=== PATIENT | male | born 1995 | race Caucasian/White ===

== ENCOUNTER 2017-08-02 13:32 | Inpatient (IN) | payer OTHER ==
[~2017-08-02] VITALS: Ht 177.8 cm; Wt 112.0 kg
[2017-08-02] MEDS ORDERED: LACTATED RINGERS 1,000 ML IV SCH (14:10)
[2017-08-02] MEDS ORDERED: tylenol with codeine PO (14:13)
[2017-08-02 14:17] VITALS: BP 148/86
[2017-08-02] MEDS ORDERED: MIDAZOLAM 1 MG/ML, 2ML ONE (17:27)
[2017-08-02] MEDS ORDERED: FENTANYL PF 250 MCG/5ML ONE (17:27)
[2017-08-02] MEDS ORDERED: PROPOFOL 10 MG/ML, 20ML ONE (17:29)
[2017-08-02] MEDS ORDERED: ROCURONIUM 10MG/ML,5ML ONE (17:30)
[2017-08-02] MEDS ORDERED: OXYMETAZOLINE NASAL SPRAY 0.05%, 15ML ONE ×3 (18:14→18:17)
[2017-08-02] MEDS ORDERED: BALANCED SALT OPHTH IRRIG SOLN 18ML ONE (18:17)
[2017-08-02] MEDS ORDERED: LIDOCAINE/PF 1%, 30ML ONE (18:17)
[2017-08-02] MEDS ORDERED: EPINEPHRINE 1 MG/ML, 1ML ONE (18:17)
[2017-08-02] MEDS ORDERED: ONDANSETRON 2MG/ML, 2ML ONE (18:22)
[2017-08-02] MEDS ORDERED: GLYCOPYRROLATE 0.2MG/1ML, 5ML ONE (18:22)
[2017-08-02] MEDS ORDERED: DEXAMETHASONE 4 MG/ML, 1ML ONE (18:22)
[2017-08-02] MEDS ORDERED: LIDOCAINE 1%-EPI 1:100K, 30ML IM ONE (18:41)
[2017-08-02] MEDS ORDERED: SUGAMMADEX 200 MG/2 ML IVPush ONE (20:00)
[2017-08-02] MEDS ORDERED: MEPERIDINE/PF 50 MG/ML ONE (20:09)
[2017-08-02] MEDS ORDERED: FENTANYL PF 100 MCG/2ML ONE (20:35)
[2017-08-02] MEDS ORDERED: OXYcodone 5 MG/5 ML ORAL.SOL UDC ONE (20:35)
[2017-08-02] MEDS: FENTANYL PF 100 MCG/2ML IV PRN ×2 (20:35→20:52)
[2017-08-02] MEDS ORDERED: hydrALAzine 20 MG/ML, 1ML IV PRN (21:00)
[2017-08-02] MEDS ORDERED: HYDROmorphone 1 MG/ML, 1ML IV PRN (21:00)
[2017-08-02] MEDS ORDERED: ACETAMINOPHEN 325 MG TABLET PO PRN (21:00)
[2017-08-02] MEDS ORDERED: LABETALOL 5MG/ML, 20ML IV PRN (21:00)
[2017-08-02] MEDS ORDERED: OXYcodone 5 MG/5 ML ORAL.SOL UDC PO PRN (21:00)
[2017-08-02] MEDS ORDERED: LORazepam 2 MG/ML, 1ML IVPush PRN (21:00)
[2017-08-02] MEDS ORDERED: PROMETHAZINE 25 MG/ML, 1ML IV PRN (21:00)
[2017-08-02] MEDS ORDERED: MORPHINE SULFATE 4 MG/ML, 1ML ONE (21:53)
[2017-08-02] MEDS: morphine SULFATE 10 MG/ML, 1ML IVPush PRN ×2 (21:58→22:23)
[2017-08-02] MEDS: LACTATED RINGERS 1,000 ML IV SCH (22:00)
[2017-08-02] MEDS: AMPICILLIN/SULBACTAM 3 GM in SODIUM CHLORIDE 0.9% 100 ML IV SCH (22:15)
[2017-08-02 23:58] VITALS: BP 126/81
[2017-08-03] MEDS: morphine SULFATE 10 MG/ML, 1ML IVPush PRN ×4 (03:10→23:52)
[2017-08-03 04:18] VITALS: BP 108/73
[2017-08-03] MEDS: AMPICILLIN/SULBACTAM 3 GM in SODIUM CHLORIDE 0.9% 100 ML IV SCH ×3 (06:29→18:19)
[2017-08-03 08:22] VITALS: BP 136/70
[2017-08-03] MEDS: LACTATED RINGERS 1,000 ML IV SCH (11:37)
[2017-08-03] MEDS: DOCUSATE 100 MG CAPSULE PO SCH ×2 (13:05→23:52)
[2017-08-03 14:09] VITALS: BP 131/72
[2017-08-03 18:51] VITALS: BP 131/70
[2017-08-03] MEDS ORDERED: ONDANSETRON 4 MG TABLET PO PRN (20:30)
[2017-08-03] MEDS ORDERED: ONDANSETRON 2MG/ML, 2ML IVPush PRN (20:30)
[2017-08-04] MEDS: AMPICILLIN/SULBACTAM 3 GM in SODIUM CHLORIDE 0.9% 100 ML IV SCH ×5 (00:02→23:41)
[2017-08-04 02:05] VITALS: BP 123/73
[2017-08-04] MEDS: LACTATED RINGERS 1,000 ML IV SCH ×2 (02:12→15:52)
[2017-08-04 07:09] VITALS: BP 116/69
[2017-08-04] MEDS: DOCUSATE 100 MG CAPSULE PO SCH ×3 (08:22→20:26)
[2017-08-04] MEDS ORDERED: BISACODYL 10 MG SUPP PR PRN (11:00)
[2017-08-04 11:34] LABS: BASOPHILS # (AUTO) 0.18 x10^3/uL (0-0.1); BASOPHILS % (AUTO) 2 % (0-1); EOSINOPHILS # (AUTO) 0.11 x10^3/uL (0-0.4); EOSINOPHILS % (AUTO) 1 % (1-7); LYMPHOCYTES # (AUTO) 1.95 x10^3/uL (1-3.4); LYMPHOCYTES % (AUTO) 17 % (22-44); MD NO; MEAN CORPUSCULAR HEMOGLOBIN 30.3 pg (27.5-34.5); MEAN CORPUSCULAR HGB CONC 34.1 g/dL (33.2-36.2); MEAN CORPUSCULAR VOLUME 88.9 fL (81-97); MEAN PLATELET VOLUME 8.1 fL (7.4-10.4); MONOCYTES % (AUTO) 11 % (2-9); NEUTROPHILS # (AUTO) 8.15 x10^3/uL (1.8-6.8); NEUTROPHILS % (AUTO) 70 % (42-75); PLATELET COUNT 322 x10^3/uL (130-400); RED BLOOD COUNT 4.64 x10^6/uL (4.38-5.82); RED CELL DISTRIBUTION WIDTH 12.7 % (9.4-14.8)
[2017-08-04 11:53] LABS: ALBUMIN 3.2 g/dL (3.4-5.0); ANION GAP 4 mmol/L (5-15); CALCIUM 8.7 mg/dL (8.5-10.1); CHLORIDE 105 mmol/L (98-107)
[2017-08-04 11:56] LABS: ALANINE AMINOTRANSFERASE 25 U/L (12-78); ALKALINE PHOSPHATASE 97 U/L (45-117); BILIRUBIN,TOTAL 0.9 mg/dL (0.2-1.0); CREATININE 0.82 mg/dL (0.7-1.3); TOTAL PROTEIN 7.2 g/dL (6.4-8.2)
[2017-08-04] MEDS: POLYETHYLENE GLYCOL 17 GM PACKET PO SCH (12:06)
[2017-08-04] MEDS: PANTOPRAZOLE 20MG TABLET PO SCH ×2 (12:06→22:50)
[2017-08-04] MEDS: morphine SULFATE 10 MG/ML, 1ML IVPush PRN ×3 (12:32→22:50)
[2017-08-04 13:44] VITALS: BP 118/73
[2017-08-04 19:30] VITALS: BP 134/86
[2017-08-05 02:32] VITALS: BP 124/71
[2017-08-05] MEDS: AMPICILLIN/SULBACTAM 3 GM in SODIUM CHLORIDE 0.9% 100 ML IV SCH ×2 (06:08→12:25)
[2017-08-05] MEDS: LACTATED RINGERS 1,000 ML IV SCH (06:08)
[2017-08-05 07:03] VITALS: BP 129/74
[2017-08-05] MEDS: morphine SULFATE 10 MG/ML, 1ML IVPush PRN (07:07)
[2017-08-05] MEDS: PANTOPRAZOLE 20MG TABLET PO SCH (09:48)
[2017-08-05] MEDS: DOCUSATE 100 MG CAPSULE PO SCH (09:48)
[2017-08-05] MEDS: POLYETHYLENE GLYCOL 17 GM PACKET PO SCH (09:48)
[2017-08-05] MEDS ORDERED: LACTULOSE 20 GM/30 ML UDC PO ONE (10:00)
[2017-08-05 13:54] VITALS: BP 132/84
[2017-08-05] MEDS ORDERED: HYDR-3241 PO (14:01)
[2017-08-05] MEDS ORDERED: POLY17PO5 PO (14:01)
[2017-08-05] MEDS ORDERED: ONDA4TAB12 PO (14:01)
[2017-08-05] MEDS ORDERED: DOCU-131 PO (14:01)
[2017-08-05] MEDS ORDERED: BISA10SU65 PR (14:01)
[2017-08-05] MEDS ORDERED: AMOX1TAB64 PO (14:37)
== END 2017-08-05 18:08 | DRG 132 ==
LOC: OUT 13:32 → 4NOR 21:40 → OUT 21:42 → 4NOR 21:42 → OBSVTOIN 21:42
PROVIDERS: ADMIT Otolaryngology Facial Plastic Surgery; ATTEND Otolaryngology Facial Plastic Surgery
PROC: 0NSV04Z Reposition Left Mandible with Internal Fixation Device, Open Approach (ICD-10-PCS; 2017-08-02)
PROC: 0NST04Z Reposition Right Mandible with Internal Fixation Device, Open Approach (ICD-10-PCS; principal; 2017-08-02 18:00)
DX: S02.651B Fracture of angle of right mandible, initial encounter for open fracture (principal); S02.66XB Fracture of symphysis of mandible, initial encounter for open fracture; K59.00 Constipation, unspecified; S02.2XXA Fracture of nasal bones, initial encounter for closed fracture; Y04.0XXA Assault by unarmed brawl or fight, initial encounter; Y93.89 Activity, other specified; Y99.8 Other external cause status; Y92.149 Unspecified place in prison as the place of occurrence of the external cause; Z82.3 Family history of stroke; Z82.49 Family history of ischemic heart disease and other diseases of the circulatory system; Z83.3 Family history of diabetes mellitus
CPT/HCPCS: 36415; 70486; 76700; 80053; 83690; 85025; C1713; J0171; J0295; J1100; J2175; J2250; J2405; J2704; J3010; J3490; Q0162; J2270; J7120